=== PATIENT | male | born 1975 | race Caucasian/White ===

== ENCOUNTER 2023-04-02 07:24 | Day surgery (SDC) | payer OTHER ==
[2023-04-01 12:35] LABS: Potassium 4.6 mEq/L (3.5-5.1)
[2023-04-02] MEDS ORDERED: CEFAZOLIN SODIUM 2 GM/VIAL ONE (07:47)
[2023-04-02] MEDS ORDERED: Ringers Lactate 1,000 ML IV ONE (07:47)
[2023-04-02] MEDS ORDERED: BUPIVACAINE 0.25% PF 30 ML VIAL ONE (08:12)
[2023-04-02] MEDS ORDERED: propofoL 200 MG/20 ML VIAL IV ONE (08:19)
[2023-04-02] MEDS ORDERED: MIDAZOLAM HCL 2 MG/2 ML INJ ONE (08:19)
[2023-04-02] MEDS ORDERED: FENTANYL CITR 100 MCG/2 ML ONE (08:19)
[2023-04-02] MEDS ORDERED: ONDANSETRON 4 MG/2 ML VIAL ONE (08:20)
[2023-04-02] MEDS ORDERED: dexAMETHasone 4 MG/ML VIAL ONE (08:20)
[2023-04-02] MEDS ORDERED: LIDOCAINE 1% MPF 5 ML VIAL ONE (08:20)
[2023-04-02] MEDS ORDERED: KETOROLAC 30 MG/ML INJ ONE (08:21)
--- NOTE | 2023-04-02 09:40 | P.OP ---
Preoperative diagnosis: Infected Sebaceous Cyst of Upper Back Postoperative diagnosis: Infected Sebaceous Cyst of Upper Back Primary procedure: Wide Excision of Infected Sebaceous Cyst of Upper Back Anesthesia: GETA + Local Estimated blood loss: ~10cc Specimen: Cultures, Debridement Tissue Findings: ~ 8cm x 5 cm sebaceous cyst to fascia over muscle Complications: None Transferred to: Recovery Room Condition: Good
[2023-04-02 10:26] VITALS: BP 138/87; TEMP 97.6; O2SAT 98
--- NOTE | 2023-04-02 19:48 | OP ---
Date of Procedure: 04/02/2023 Surgeon: Ron Eckert MD, Preoperative Diagnosis: Infected sebaceous cyst of the upper back. Postoperative Diagnosis: Infected sebaceous cyst of the upper back. Procedure Performed: Wide excision of infected sebaceous cyst of the upper back. Anesthesia: General endotracheal plus local with 0.25% Marcaine. Estimated Blood Loss: Less than 10 cc. Specimen: Culture sent for aerobic and anaerobic speciation and debridement of tissue. Findings: Approximately 8 cm x 5 cm sebaceous cyst of the upper back down to the fascia overlying th e muscle. Complications: None. Disposition: Patient transferred to recovery room in good condition. Procedure In Detail: After informed consent was obtained, patient was brought to the operating room, prepped and draped in the usual sterile fashion. After adequate anesthesia was achieved, I made a l inear incision overlying an infected sebaceous cyst that almost came to head, dissected down through subcutaneous tissues. Abscess material was encountered. This was sent off for both aerobic and anae robic speciation. I then removed an ellipse of skin which was involved within the abscess material, as such circumferentially dissected down to remove all sebaceous material, sent off for pathologic ex amination. The area was approximately 8 cm x 5 cm extending down to the fascia overlying the muscle. After all this tissue was removed, I achieved hemostasis with electrocautery, irrigated the wound c opiously and opted to pack the wound with Vashe soaked Kerlix, and a sterile dressing was placed over top. The patient tolerated the procedure well without evidence of complication and transferred to PACU in good condition. All counts were cor rect at the end of the case. VERONIQUE/SAVAGE Voice ID: [id number] Report ID: [id number]
--- NOTE | 2023-04-05 17:19 | EKG ---
Test Date: 2023-04-01 Test Time: 12:08:45 Restaurant Area Director: ELIANE MEASUREMENT RESULTS: Intervals: Rate: 70 TX: 180 QRSD: 104 QT: 392 QTc: 423 [place]: P: 37 TX: 180 QRS: 7 T: 3 INTERPRETIVE STATEMENTS: Normal sinus rhythm Incomplete right bundle branch block Borderline ECG No previous ECG available for comparison Electronically Signed On 04-05-23 17:13:03 CDT by Zander Renner
== END 2023-04-02 11:07 | disposition home or self-care (01) ==
LOC: OR 07:24
PROVIDERS: ATTEND Surgery
PROC: 0JB70ZZ Excision of Back Subcutaneous Tissue and Fascia, Open Approach (ICD-10-PCS; principal; 2023-04-02 09:00)
DX: L72.3 Sebaceous cyst (principal); L08.9 Local infection of the skin and subcutaneous tissue, unspecified
CPT/HCPCS: 93005; 80048; 36415; 11406; J2704; J1100; J2001; J2250; J3010; J2405; J7120

== ENCOUNTER 2025-07-06 10:47 | Day surgery (SDC) | payer OTHER ==
[2025-07-05 09:34] LABS: Anion Gap 8.3 mEq/L (5.0-15.0); BUN Blood Urea Nitrogen 11.0 mg/dL (7-18); Glucose Level 113.0 mg/dL (74-106); Potassium 4.3 mEq/L (3.5-5.1)
[2025-07-06] MEDS: Ringers Lactate 1,000 ML IV ONE (11:00)
[2025-07-06] MEDS ORDERED: FENTANYL CITR 100 MCG/2 ML ONE (11:55)
[2025-07-06] MEDS ORDERED: MIDAZOLAM HCL 2 MG/2 ML INJ ONE (11:55)
[2025-07-06] MEDS ORDERED: LIDOCAINE 1% MPF 5 ML VIAL ONE (11:56)
[2025-07-06] MEDS: CEFAZOLIN SODIUM 2 GM/VIAL ONE (12:33)
[2025-07-06] MEDS ORDERED: ONDANSETRON 4 MG/2 ML VIAL ONE (12:56)
[2025-07-06] MEDS: LIDOCAINE HCL/EPINEPHRINE 20 ML MDV ONE (13:01)
--- NOTE | 2025-07-06 13:13 | P.OP ---
Preoperative diagnosis: LEFT upper back infected cyst Postoperative diagnosis: LEFT upper back infected cyst Primary procedure: Wide excision of LEFT upper back infected cyst Anesthesia: GETA + Local Estimated blood loss: <10cc Specimen: cultures, debridement tissue Findings: 7cm x 3cm x 1.5 cm to fascia over muscle Complications: None Transferred to: Recovery Room Condition: Good
[2025-07-06 14:44] VITALS: BP 143/91; TEMP 97.2; O2SAT 97
--- NOTE | 2025-07-06 20:43 | OP ---
Date of Procedure: 07/06/2025 Surgeon: Ron Eckert MD, Preoperative Diagnosis: Left upper back infected cyst. Postoperative Diagnosis: Left upper back infected cyst. Procedure Performed: Wide local excision of left upper back infected sebaceous cyst. Anesthesia: General endotracheal plus local with 1% lidocaine with epinephrine. Estimated Blood Loss: Less than 10 cc. Specimens: Culture sent both for aerobic and anaerobic speciation. Debridement of tissue. Findings: Approximately 7 cm x 3 cm x 1.5 cm down to the fascia overlying the muscle. Complications: None. Disposition: The patient was transferred to recovery room in good condition. Procedure In Detail: After informed consent was obtained, the patient was brought to the operating r oom, prepped and draped in the usual sterile fashion after adequate anesthesia had been achieved. I made an elliptical incision over the left upper back, down to subcutaneous tissues around an obviousl y infected sebaceous cyst which had several components to it. I dissected down through the tissue to include this tissue ultimately removing it in its entirety, at this time. Material was encountered at this point, sent off, the area was cultured both for aerobic and anaerobic speciation. The tissue was removed in its entirety. Sent for pathologic examination as debridement of tissue. The area wa s copiously irrigated multiple times and completely clear. Hemostasis was achieved with electrocaute ry. The area was irrigated once again, partially reapproximated with 3-0 nylon sutures and packed in the central portion with Vashe-soaked Kerlix, and a sterile dressing was placed over top. The patie nt tolerated the procedure without incident or complication and transferred to PACU in good condition . All counts were correct at the end of the case. VERONIQUE/SAVAGE Voice ID: [id number] Report ID: [id number]
== END 2025-07-06 14:38 | disposition home or self-care (01) ==
LOC: OR 10:47
PROVIDERS: ATTEND Surgery
PROC: 0JB70ZZ Excision of Back Subcutaneous Tissue and Fascia, Open Approach (ICD-10-PCS; principal; 2025-07-06 13:15)
DX: L72.0 Epidermal cyst (principal)
CPT/HCPCS: 93005; 87070; 80048; 36415; 87205; 88304; 87075; 11406; J2704 ×2; J2003; J2250; J3010; J1100; J2405; J7120